=== PATIENT | male | born 1990 | race Caucasian/White ===

== ENCOUNTER 2017-03-17 19:52 | Emergency (ER) | payer SELFPAY ==
[~2017-03-17] VITALS: Ht 175.3 cm; Wt 65.0 kg
[2017-03-17 19:59] VITALS: BP 124/83; PULSE 77; RESP 18; TEMP 98.4; O2SAT 99
--- NOTE | 2017-03-17 20:22 | PD ---
HPI Chief Complaint: OD/ Ingestion Time Seen by Provider: 20:13 Travel History International Travel<30 days: No Contact w/Intl Traveler<30days: No Traveled to known affect area: No History of Present Illness HPI 26-year-old male presents to emergency department status post IV heroin overdose that occurred just prior to arrival. Patient arrived by [facility]. According to their notes patient was given multiple rounds of Narcan before he woke up. At this time patient does not want to be here and denies fever, chills , chest pain, shortness of breath. Patient denies intentional overdose, suicidal or homicidal ideations. States that he has never had an overdose requiring hospitalization. Patient states that he believes the heroin was "laced with fentanyl". States that he does IV drugs. PFSH Past Medical History Asthma: Yes Anxiety: Yes Diminished Hearing: No Tetanus Vaccination: Unknown Influenza Vaccination: No Past Surgical History Genitourinary Surgery: Yes (PENIS SURGERY) Social History Alcohol Use: Yes (OCCASSIONALLY) Tobacco Use: Yes (1/2 PPD) Substance Use: Yes (HEROIN, FENTYNAL) Allergies-Medications (Allergen,Severity, Reaction): Coded Allergies: No Known Allergies (Unverified , 03/17/17) Review of Systems Except as stated in HPI: all other systems reviewed are Neg Physical Exam Narrative GENERAL: Well-developed well-nourished in no apparent distress, she does not want to be in the hospital right now. SKIN: Focused skin assessment warm/dry. HEAD: Atraumatic. Normocephalic. EYES: Pupils equal and round. No scleral icterus. No injection or drainage. ENT: No nasal bleeding or discharge. Mucous membranes pink and moist. NECK: Trachea midline. No JVD. CARDIOVASCULAR: Regular rate and rhythm. No murmur appreciated. RESPIRATORY: No accessory muscle use. Clear to auscultation. Breath sounds equal bilaterally. GASTROINTESTINAL: Abdomen soft, non-tender, nondistended. Hepatic and splenic margins not palpable. MUSCULOSKELETAL: No obvious deformities. No clubbing. No cyanosis. No edema. NEUROLOGICAL: Awake and alert. No obvious cranial nerve deficits. Motor grossly within normal limits. Normal speech. PSYCHIATRIC: Appropriate mood and affect; insight and judgment normal. Data Data Last Documented VS Vital Signs Date Time Temp Pulse Resp B/P (MAP) Pulse Ox O2 Delivery O2 Flow Rate FiO2 03/17/17 19:59 98.4 77 18 124/83 (97) 99 MDM Medical Decision Making Medical Screen Exam Complete: Yes Emergency Medical Condition: Yes Differential Diagnosis Polysubstance abuse, heroin overdose, dehydration, metabolic disturbance Narrative Course 26-year-old male presents to emergency department status post IV heroin overdose that occurred just prior to arrival. Patient arrived by [facility]. According to their notes patient was given multiple rounds of Narcan before he woke up. At this time patient does not want to be here and denies fever, chills , chest pain, shortness of breath. Patient denies intentional overdose, suicidal or homicidal ideations. States that he has never had an overdose requiring hospitalization. Patient states that he believes the heroin was "laced with fentanyl". States that he does IV drugs. Vital signs stable. I explained to the patient that he should be observed for 2-3 hours to ensure stability. Patient stated that he would be willing to stay for an hour. I advised him that that is not standard of care and that he would be signing out AMA if he left prior to discharge. My attending physician also discussed the risk vs benefits of leaving AMA. Pt was competent to make this decision. Diagnosis Primary Impression: Accidental heroin overdose Qualified Codes: T40.1X1A - Poisoning by heroin, accidental (unintentional), initial encounter Additional Instructions: Follow-up a primary care physician. Avoid IV drugs as this may cause . Consider rehabilitation for your IV drug use. Follow up with Adrian Pérez. Disposition: 07 AGAINST MEDICAL ADVICE Condition: Stable Kaylene Fernandes Mar 17, 2017 20:22
--- NOTE | 2017-03-17 20:40 | PD ---
Physical Exam Date Seen by Provider: Mar 17, 2017 Narrative This patient presents status post a heroin overdose. He is now lucid. Data Data Last Documented VS Vital Signs Date Time Temp Pulse Resp B/P (MAP) Pulse Ox O2 Delivery O2 Flow Rate FiO2 03/17/17 19:59 98.4 77 18 124/83 (97) 99 MDM Supervised Visit with ANA ROSA: Yes Narrative Course I, Dr. Phleps, have reviewed the advance practice practitioner's documentation and am in agreement, met with the patient face to face, made the diagnosis, and the medical decision making was done by me. *My assessment and Findings: Patient is now awake and alert and fully oriented. Diagnosis Primary Impression: Accidental heroin overdose Qualified Codes: T40.1X1A - Poisoning by heroin, accidental (unintentional), initial encounter Additional Instruction: Follow-up a primary care physician. Avoid IV drugs as this may cause . Consider rehabilitation for your IV drug use. Follow up with Adrian Pérez. Condition: Stable Opal Phelps MD Mar 17, 2017 20:40
== END 2017-03-17 20:51 | disposition left against medical advice (07) ==
LOC: NEPC 19:52
DX: T40.1X1A Poisoning by heroin, accidental (unintentional), initial encounter (principal); J45.909 Unspecified asthma, uncomplicated; F41.9 Anxiety disorder, unspecified; F17.200 Nicotine dependence, unspecified, uncomplicated
CPT/HCPCS: 99281